=== PATIENT | female | born 1975 | race Caucasian/White ===

== ENCOUNTER 2019-05-21 16:29 | Emergency (ER) | payer OTHER, SELFPAY ==
--- NOTE | 2019-05-21 16:40 | ED.URI ---
HPI - URI/Sore Throat General Chief Complaint: Upper Respiratory Infection Stated Complaint: cough/congested/whezzing/ramirez Time Seen by Provider: 05/21/19 16:41 Source: patient and RN notes reviewed History of Present Illness HPI Narrative: Patient is a 44-year-old female that presents the urgent care with complaints of cough, congestion, wheezing, headache. Patient states that she is also had some intermittent shortness of breath. States that her symptoms started on Monday. Denies any known fever, nausea, vomiting. Patient would also like to mention that her urine is very yellow and would like to be tested for urinary tract infection . Patient states that her yellow urine has been ongoing for approximately a week and a half. Patient also proceeded to say that she was having some urgency and burning with urination intermittently. Patient has been taking Excedrin for her headache. Patient believes her headache is from all the drainage . Patient denies any chest pain. States that she will not go back to her primary care physician but believes she was on high blood pressure medication at one time in which she took herself off . Patient stated multiple times that she does not take care of herself . No other acute complaints. No acute distress noted. Patient aware of the plan of care. Related Data Allergies Allergy/AdvReac Type Severity Reaction Status Date / Time Penicillins Allergy Unknown Verified 03/02/15 13:33 Review of Systems Review of Systems: Narrative: CONSTITUTIONAL: Denies fever, chills, or sweats. EYES: Denies visual changes, redness, or discharge. ENT: Denies rhinorrhea, congestion, sore throat, or otalgia. Reports of postnasal drainage CARDIOVASCULAR: Denies chest pain, palpitations, or edema. RESPIRATORY: Reports of cough, chest congestion, wheezing GASTROINTESTINAL: Denies abdominal pain, nausea, vomiting, or diarrhea. GENITOURINARY: Reports of dysuria, urgency, yellow urine SKIN: Denies rash or itching. MUSCULOSKELETAL: Denies back pain, joint pain, or myalgia. NEUROLOGIC: Reports of headache All other systems reviewed are negative, except as documented in HPI. [facility] Family History Family History (Updated 11/13/15 @ 23:21 by DOCTOR UNKNOWN) Mother Patient's mother is in good health Sibling Patient's sister is in good health Social History Social History Smoking status: Heavy tobacco smoker Alcohol intake: current Gender identity (if verbalized by the patient): Female Comments At the time of my signature, I reviewed and agree with the nursing past medical, surgical, social, and family history. There is no relevant family history pertinent to the patient complaint. Exam Narrative: Exam Narrative: GENERAL: This is a well-nourished, well-developed patient, in no apparent distress. HEAD: normocephalic, atraumatic. EYES: PERRL. Sclera clear/white. Vision is grossly intact. EARS: External ears normal, auditory canals clear and without drainage, TMs normal without perforation. Hearing grossly intact. NOSE: External nose normal with no obvious nasal discharge, nares without redness, no rhinorrhea. THROAT: Mucous membranes moist, posterior pharynx clear. Moderate postnasal drainage NECK: Neck supple CARDIOVASCULAR: Regular rate and rhythm without murmurs, gallops, or rubs. RESPIRATORY: Inspiratory and expiratory wheezes throughout GASTROINTESTINAL: Soft, nontender SKIN: warm, intact with no suspicious lesions or rash, good texture and turgor. NEURO: awake, alert, and oriented to person, place and time. There were no obvious focal neurologic abnormalities. EXTREMITIES: No clubbing, cyanosis, or edema. BACK: Negative bilateral CVA tenderness Course Vital Signs Vital signs: Vital Signs Temperature 97.5 F L 05/21/19 16:43 Pulse Rate 87 05/21/19 16:43 Respiratory Rate 18 05/21/19 16:43 Pulse Oximetry 100 05/21/19 16:43 Temperature 97.5 F L 05/21/19 16:43 Pulse Rate 87
[2019-05-21 16:43] VITALS: PULSE 87; RESP 18; TEMP 36.4; O2SAT 100
[2019-05-21 17:03] VITALS: BP 196/112
== END 2019-05-21 17:14 | disposition home or self-care (01) ==
PROVIDERS: Emergency Provider Nurse Practitioner Family
DX: J40 Bronchitis, not specified as acute or chronic (principal); F17.200 Nicotine dependence, unspecified, uncomplicated
CPT/HCPCS: 81003; 99213; G0463

== ENCOUNTER 2019-08-04 14:54 | Emergency (ER) | payer OTHER, SELFPAY ==
[2019-08-04 15:09] VITALS: BP 158/88; PULSE 84; RESP 16; TEMP 37.1; O2SAT 99
--- NOTE | 2019-08-04 15:35 | ED.GENADULT ---
HPI - General Adult General Chief complaint: Unspecified Stated complaint: nose rhino removal History of Present Illness HPI narrative: Patient had a rhino rocket placed at [facility] in [facility] due to her nose bleed that would not stom on Monday and is here today to have it removed. Related Data Home Medications Medication Instructions Recorded Confirmed albuterol sulfate [Ventolin HFA] INHALATION 08/04/19 lisinopril 08/04/19 metoprolol succinate PO 08/04/19 Allergies Allergy/AdvReac Type Severity Reaction Status Date / Time Penicillins Allergy Unknown Verified 03/02/15 13:33 Review of Systems Review of Systems: Narrative: CONSTITUTIONAL: Denies fever, chills, or sweats. EYES: Denies visual changes, redness, or discharge. ENT: Denies rhinorrhea, congestion, sore throat, or otalgia. Left nare Rhino Rocket CARDIOVASCULAR:Denies chest pain, palpitations, or edema. RESPIRATORY: Denies cough or dyspnea. GASTROINTESTINAL: Denies abdominal pain, nausea, vomiting, or diarrhea. GENITOURINARY: Denies dysuria or hematuria. SKIN:[Denies rash or itching. MUSCULOSKELETAL:Denies back pain, joint pain, or myalgia. NEUROLOGIC: Denies headache, numbness, or weakness. PSYCHIATRIC:Denies anxiety or depression ON LICENSE OF [facility] Family History Family History (Updated 11/13/15 @ 23:21 by DOCTOR UNKNOWN) Mother Patient's mother is in good health Sibling Patient's sister is in good health Social History Social History Smoking status: Heavy tobacco smoker Alcohol intake: current Gender identity (if verbalized by the patient): Female Comments At time as signature, I have reviewed and agree with nursing past medical, social, surgical and family history. Please see nursing chart for further information. There is no relevant family history pertinent to the presenting complaint. Exam Narrative: Exam Narrative: GENERAL:Well-appearing, well-nourished, and in no acute distress. HEAD:Normocephalic, atraumatic. EYES: PERRLA and EOMI. ENT: Nares left has rhino rocket with slight drainage noted with streak drainage. Mucous membranes moist. NECK: Supple. CHEST: Clear to auscultation. No respiratory distress. HEART: Regular rate and rhythm. No murmur heard. Normal peripheral pulses. ABDOMEN: Soft, nontender, nondistended, normal active bowel sounds. EXTREMITIES: Normal range of motion. No edema. SKIN: Warm, dry, no rash. NEURO: No focal deficits. Alert and oriented x3. Course Vital Signs Vital signs: Vital Signs Temperature 98.8 F 08/04/19 15:09 Pulse Rate 84 08/04/19 15:09 Respiratory Rate 16 08/04/19 15:09 Blood Pressure 158/88 H 08/04/19 15:09 Pulse Oximetry 99 08/04/19 15:09 Temperature 98.8 F 08/04/19 15:09 Pulse Rate 84 08/04/19 15:09 Respiratory Rate 16 08/04/19 15:09 Blood Pressure 158/88 H 08/04/19 15:09 Pulse Oximetry 99 08/04/19 15:09 Procedures FB Removal Nose Foreign Body #1: Foreign Body Removal Date: 08/04/19 Foreign Body Removal Time: 17:07 Location: nostril (L) Suspected Foreign Body: other (Rhino rocket) Complications: none Additional Comments: nasal drainae filled with nasal secretion that has old blood noted. Patient tolerated well with not acute bleeding noted. Medical Decision Making Vital Signs Vital Signs: Vital Signs Temperature 98.8 F 08/04/19 15:09 Pulse Rate 84 08/04/19 15:09 Respiratory Rate 16 08/04/19 15:09 Blood Pressure 158/88 H 08/04/19 15:09 Pulse Oximetry 99 08/04/19 15:09 Temperature 98.8 F 08/04/19 15:09 Pulse Rate 84 08/04/19 15:09 Respiratory Rate 16 08/04/19 15:09 Blood Pressure 158/88 H 08/04/19 15:09 Pulse Oximetry 99 08/04/19 15:09 Discharge Plan Discharge Clinical Impression: Encounter for removal of nasal pack Patient Disposition: Home, Self-Care Condition: Stable Instructions: Antibiotic Form, Nosebleed (ED) Additional Instructions: Your
== END 2019-08-04 15:50 | disposition home or self-care (01) ==
PROVIDERS: Emergency Provider Nurse Practitioner Family; PCP Family Medicine
DX: Z48.00 Encounter for change or removal of nonsurgical wound dressing (principal)
CPT/HCPCS: 99211; G0463

== ENCOUNTER 2022-11-07 09:35 | Emergency (ER) | payer BC, SELFPAY ==
--- NOTE | 2022-11-07 09:39 | ED.URI ---
HPI - URI/Sore Throat General Chief Complaint: Upper Respiratory Infection Stated Complaint: Cough,Congestion Time Seen by Provider: 11/07/22 09:43 Source: patient, RN notes reviewed and old records reviewed Mode of arrival: ambulatory Limitations: no limitations History of Present Illness HPI Narrative: 47-year-old female presents to the [facility] with complaints of cough and congestion for 1 week. Patient is currently a smoker. Has noticed some postnasal drainage as well. Reports chest congestion, sinus congestion, ear fullness Has tried [id number] products with minimal to no relief. Onset (ago): week(s) (1) Related Data Home Medications Medication Instructions Recorded Confirmed albuterol sulfate 90 mcg/actuation inhalation 08/04/19 aerosol inhaler (Ventolin HFA) lisinopril 20 mg tablet 08/04/19 metoprolol succinate 100 mg PO 08/04/19 tablet,extended release 24 hr Allergies Allergy/AdvReac Type Severity Reaction Status Date / Time Penicillins Allergy Unknown Verified 03/02/15 13:33 Review of Systems Review of Systems: All systems reviewed & are unremarkable except as noted in HPI and below Constitutional: Constitutional: Reports no additional constitutional complaints Eyes: Eyes: Reports no additional eye complaints ENT: Reports as per HPI Cardiovascular: Cardiovascular: Reports no additional cardiovascular complaints, Denies chest pain and Denies dyspnea Respiratory: Respiratory: Reports as per HPI, Reports chest congestion, Reports cough, Denies dyspnea and Reports wheezing Gastrointestinal: Gastrointestinal: Reports no additional gastrointestinal complaints, Denies abdominal pain, Denies nausea and Denies vomiting Musculoskeletal: Musculoskeletal: Reports no additional musculoskeletal complaints Integumentary/Breasts: Skin/Breast: Reports system reviewed and no additional complaints, except as docu Neurologic: Reports system reviewed and no additional complaints, except as documented Psychiatric: Psychiatric: Reports no additional psychiatric complaints Allergic/Immunologic: Allergic/Immunologic: Reports no additional allergic/immunologic complaints [facility] Family History Family History Mother Patient's mother is in good health Sibling Patient's sister is in good health Social History Social History Smoking status: Heavy tobacco smoker Alcohol intake: current Gender identity (if verbalized by the patient): Female Comments At the time of my signature, I reviewed and agree with the nursing past medical, surgical, social, and family history. There is no relevant family history pertinent to the patient complaint. Exam Const: General: cooperative, healthy appearing, comfortable, no acute distress, well developed, alert and well nourished Nutritional Appearance: well nourished and obese Orientation/consciousness: patient oriented x3 Limitations: no limitations HENMT: Head: normal to inspection Ears: hearing grossly normal bilaterally, external ears normal, TM's normal bilaterally and EAC's normal Face/Nose/Sinus: Normal external nose present, Normal nares present, Normal nasal mucous membranes and turbinates present and normal facial exam Face and sinus: normal facial exam Mouth: Yes Normal oral and palatal mucosa present, Yes lip normal and Yes moist mucous membranes Throat: posterior oropharynx normal, uvula midline and postnasal drainage Eyes: General: appearance normal, both eyes and all related structures Alignment and Position: alignment normal Periorbital: periorbital findings normal Pupils: Equal, round and reactive pupils present EOM: EOMs intact bilaterally Neck: Neck: normal visual inspection, full ROM, no lymphadenopathy and no meningeal signs Chest: Chest palpation & inspection: normal inspection of the chest Resp: Effort & Inspection: normal re
[2022-11-07 09:42] VITALS: BP 161/99; PULSE 88; RESP 16; TEMP 36.1; O2SAT 99
== END 2022-11-07 10:01 | disposition home or self-care (01) ==
PROVIDERS: Emergency Provider Nurse Practitioner
DX: J40 Bronchitis, not specified as acute or chronic (principal); F17.200 Nicotine dependence, unspecified, uncomplicated
CPT/HCPCS: 99213; G0463

== ENCOUNTER 2023-09-02 16:00 | Emergency (ER) | payer BC, SELFPAY ==
[2023-09-02] VITALS (13 sets, daily range): BP systolic 169–208; BP diastolic 97–114; PULSE 96–126; RESP 20–36; TEMP 36.7; O2SAT 97–98
--- NOTE | ~2023-09-02 | XR_ITS ---
EXAMINATION: XR chest 2V Exam Date/Time: 09/02/2023 16:52 CDT HISTORY: heavy chest/cp starting at 1100 Comparison: None. RESULT: Lines, tubes, and devices: None. Lungs and pleura: Diffuse reticulonodular opacities and cuffing. No focal consolidation, pleural eff usion, or pneumothorax. Cardiomediastinal silhouette: Unremarkable. Other: No acute osseous or upper abdominal finding. IMPRESSION: Pulmonary opacities may represent mild interstitial edema and/or respiratory bronchiolitis. Reviewed, dictated and finalized at location K. IMPRESSION: Pulmonary opacities may represent mild interstitial edema and/or respiratory br onchiolitis.
--- NOTE | 2023-09-02 16:01 | ECG_ITS ---
SEE SCANNED COPY FOR CONFIRMED REPORT MTDD
[2023-09-02 16:14] LABS: Basophils Absolute Auto 0.1 K/mm3 (0.0-0.1); Basophils Percent Auto 0.4 % (0.2-1.2); Eosinophils Percent Auto 0.1 % (0-4.4); Hematocrit 43.8 % (37.0-47.0); Hemoglobin 14.3 g/dL (12.0-15.0); Immature Granulocyte Absolute 0.05 K/mm3 (0.00-0.031); Immature Granulocyte Percent A 0.4 % (0-0.5); Lymphocytes Absolute Auto 1.72 K/mm3 (0.9-3.2); Lymphocytes Percent Auto 12.3 % (18.3-44.2); Mean Corpuscular HGB Conc 32.6 g/dl (32-36); Mean Corpuscular Hemoglobin 29.3 pg (26-34); Mean Corpuscular Volume 89.8 fl (80-100); Mean Platelet Volume 11.5 fl (7.4-10.4); Monocytes Percent Auto 7.4 % (2.6-8.5); Neutrophils Absolute Auto 11.1 K/mm3 (1.3-6.7); Neutrophils Percent Auto 79.4 % (45.5-73.1); Platelet Count Result 289 k/mm3 (150-375); Red Blood Count 4.88 M/mm3 (4.2-5.4); Red Cell Distribution Width 15.7 % (11.5-14.5)
[2023-09-02] MEDS: ASPIRIN 81 MG CHEWABLE TABLET 324 MG PO (16:14)
[2023-09-02 16:23] LABS: Alanine Aminotransferase 29 U/L (6-35); Alkaline Phosphatase 103 U/L (38-126); Anion Gap 8 mmol/L (4-12); Aspartate Amino Transferase 27 U/L (14-36); Bilirubin,Total 0.8 mg/dL (0.2-1.3); Blood Urea Nitrogen 13 mg/dL (7-17); Carbon Dioxide 23 mmol/L (22-30); Chloride 105 mmol/L (98-107); Estimated CRCL calculation 117 ml/min; Estimated Glomerular Filt Rate > 60; Glucose 110 mg/dL (65-110); Lipase 46 U/L (23-300); Potassium 4.1 mmol/L (3.4-5.0); Sodium 136 mmol/L (137-145)
[2023-09-02 16:25] LABS: INR 0.9; Partial Thromboplastin Time 30.8 Seconds (22.3-36.8); Prothrombin Time 12.7 Seconds (11.1-14.7)
[2023-09-02 16:35] LABS: Troponin I < 0.012 ng/mL (0.000-0.034)
[2023-09-02] MEDS: LORazepam (*CRX) 0.5 MG TABLET PO (16:40)
[2023-09-02] MEDS: NITROGLYCERIN SL 0.4 MG TABLET SUBLINGUAL (16:41)
--- NOTE | 2023-09-02 16:48 | PC.NURSE ---
Pt had 2x Nitroglycerin co chest pain per EDP orders.
--- NOTE | 2023-09-02 17:43 | ED.CHESTPAIN ---
HPI - Chest Pain General Chief Complaint: Chest Pain Stated Complaint: chest heavy Time Seen by Provider: 09/02/23 16:14 History of Present Illness HPI narrative: Patient states that earlier today she started feeling like she can not breathe, was having chest tightness, felt like her hands were going slightly numb, she does have history of hypertension but has not seen a doctor in 5 years and is not on medications Related Data Home Medications Medication Instructions Recorded Confirmed albuterol sulfate 90 mcg/actuation inhalation 08/04/19 aerosol inhaler (Ventolin HFA) lisinopril 20 mg tablet 08/04/19 metoprolol succinate 100 mg PO 08/04/19 tablet,extended release 24 hr Allergies Allergy/AdvReac Type Severity Reaction Status Date / Time Penicillins Allergy Unknown Verified 03/02/15 13:33 Review of Systems Review of Systems: All systems reviewed & are unremarkable except as noted in HPI and below PMFSH Family History Family History Mother Patient's mother is in good health Sibling Patient's sister is in good health Social History Social History Smoking status: Heavy tobacco smoker Alcohol intake: current Gender identity (if verbalized by the patient): Female Exam Narrative: EXAMINATION OF ORGAN SYSTEMS/BODY AREAS: Constitutional: Vital signs per nursing GENERAL: Appears extremely anxious, sitting bolt upright in bed HEAD: Normal with no signs of head trauma. EYES: EOMI, conjunctiva normal ENT: Hearing grossly intact LUNGS: Slightly hyperventilating HEART: Tachycardic ABD: [Soft], [nontender to palpation] EXT: Normal range of motion SKIN: [No rashes or lesions.] NEURO: [Alert and oriented x 3. No gross focal sensory or strength deficits.] PSYCH: Very anxious affect Course Vital Signs Vital signs: Vital Signs Temperature 98.0 F 09/02/23 16:07 Pulse Rate 116 H 09/02/23 16:07 Respiratory Rate 20 09/02/23 16:07 Blood Pressure 208/114 H 09/02/23 16:07 Pulse Oximetry 98 09/02/23 16:07 Oxygen Delivery Room Air 09/02/23 16:07 Temperature 98.0 F 09/02/23 16:07 Pulse Rate 112 H 09/02/23 17:18 Respiratory Rate 24 H 09/02/23 17:18 Blood Pressure 180/97 H 09/02/23 17:18 Pulse Oximetry 97 09/02/23 17:18 Oxygen Delivery Room Air 09/02/23 16:11 MDM - Chest Pain MDM Narrative Medical decision making narrative: Patient with history of hypertension presenting here with symptoms consistent with panic attack, also considered possible ACS or pneumonia. On exam patient is [tachycardic and hyperventilating and is quite anxious]. I will obtain EKG and chest xray to rule out arrhythmia/ischemia, pneumothorax, or other cause of chest discomfort/shortness of breath. Chest x-ray on my independent interpretation does not show any acute abnormality, no pneumothorax or consolidation. EKG showing sinus tachycardia without acute ischemia or arrhythmia I did give patient aspirin and nitroglycerin however she continued to have symptoms, I did therefore gave her small dose of Ativan which helped immediately and on re-evaluation, patient is feeling better, resting comfortably, vital signs now stable. Denies any complaints whatsoever right now. Heart rate is now 86, she is resting comfortably. Blood pressure also improved. Patient also with asymptomatic hypertension. No signs or symptoms of end organ dysfunction; no neurological deficits, severe headaches, visual disturbance, oliguria, or symptoms of dissection/AAA. Long-term risks of hypertension, especially uncontrolled, were discussed including increased risks of kidney disease, vascular disease, stroke and heart disease. We discussed lifestyle modifications including diet and exercise. I will start patient on amlodipine here and provide script for short course, patient expressed understanding of the ins
[2023-09-02 18:11] LABS: Influenza A QL RT-PCR Negative (Negative); Influenza B QL RT-PCR Negative (Negative); RSV RNA, RT-PCR Negative (Negative); SARS-CoV-2 RNA PCR Negative (Negative)
--- NOTE | 2023-09-02 19:00 | ECG_ITS ---
SEE SCANNED COPY FOR CONFIRMED REPORT MTDD
[2023-09-02 19:45] LABS: Troponin I < 0.012 ng/mL (0.000-0.034)
== END 2023-09-02 20:14 | disposition home or self-care (01) ==
PROVIDERS: Preventive Medicine Aerospace Medicine; Emergency Provider Emergency Medicine
DX: R07.9 Chest pain, unspecified (principal); R00.0 Tachycardia, unspecified; Z20.822 Contact with and (suspected) exposure to COVID-19; I10 Essential (primary) hypertension
CPT/HCPCS: 36415; 71046; 80053; 83690; 84484; 85025; 85610; 85730; 87637; 93005; 99284; A9270

== ENCOUNTER 2023-09-13 14:36 | Emergency (ER) | payer BC, SELFPAY ==
--- NOTE | 2023-09-13 14:45 | ED.URI ---
HPI - URI/Sore Throat General Chief Complaint: Upper Respiratory Infection Stated Complaint: cold symptoms Time Seen by Provider: 09/13/23 14:45 Source: patient Mode of arrival: ambulatory Limitations: no limitations History of Present Illness HPI Narrative: 48-year-old female presents with complaint of sore throat, bilateral ear pain, nasal congestion, cough, fatigue, body aches and fever for 4 days. Not taking any [id number]-[id number] medications to treat her symptoms. Does take Zyrtec and aspirin daily. No chest pain or shortness breath. Denies nausea vomiting diarrhea. All systems reviewed and negative except as noted above. Related Data Home Medications Medication Instructions Recorded Confirmed cetirizine 10 mg tablet (Zyrtec) 10 mg PO DAILY PRN Allergy Symptoms 09/13/23 09/13/23 Allergies Allergy/AdvReac Type Severity Reaction Status Date / Time Penicillins AdvReac Mild Hives Verified 09/13/23 14:40 Review of Systems Review of Systems: CONSTITUTIONAL: reports fever, chills, or sweats. EYES: Denies visual changes, redness, or discharge. ENT: Reports rhinorrhea, congestion, sore throat, and bilateral otalgia. CARDIOVASCULAR: Denies chest pain, palpitations, or edema. RESPIRATORY: reports cough. Denies dyspnea. GASTROINTESTINAL: Denies abdominal pain, nausea, vomiting, or diarrhea. GENITOURINARY: Denies dysuria or hematuria. SKIN: Denies rash or itching. MUSCULOSKELETAL: Denies back pain, joint pain, or myalgia. NEUROLOGIC: Denies headache, numbness, or weakness. PSYCHIATRIC: Denies anxiety or depression. All other systems reviewed are negative, except as documented in HPI. [facility] Family History Family History Mother Patient's mother is in good health Sibling Patient's sister is in good health Social History Social History Smoking status: Heavy tobacco smoker Alcohol intake: current Gender identity (if verbalized by the patient): Female Comments At time of signature, agree with nursing past medical, surgical, social and family history. There is no relevant family history pertinent to the presenting complaint. Exam Narrative: GENERAL: This is a well-nourished, well-developed patient, in no apparent distress. HEAD: normocephalic, atraumatic. EYES: PERRL. Sclera clear/white. Vision is grossly intact. EARS: External ears normal, auditory canals clear and without drainage, Fluid to bilateral TMs with erythema without perforation. Hearing grossly intact. NOSE: External nose normal with Moderate congestion, clear nasal drainage, erythema and swelling to bilateral nares. THROAT: Mucous membranes moist, erythema with mild swelling. No exudates. NECK: Neck supple, non-tender without lymphadenopathy, masses or thyromegaly. CARDIOVASCULAR: Regular rate and rhythm without murmurs, gallops, or rubs. RESPIRATORY: Clear to auscultation. Breath sounds equal bilaterally. No wheezes, rales, or rhonchi. SKIN: warm, Dry, intact with no suspicious lesions or rash, good texture and turgor. NEURO: awake, alert, and oriented to person, place and time. There were no obvious focal neurologic abnormalities. EXTREMITIES: No joint tenderness, effusion, or edema noted. Course Course Level of Care: Express Care Visit Vital Signs Vital signs: Vital Signs Temperature 36.6 C 09/13/23 14:46 Pulse Rate 110 H 09/13/23 14:46 Respiratory Rate 18 09/13/23 14:46 Blood Pressure 151/85 H 09/13/23 14:46 Pulse Oximetry 98 09/13/23 14:46 Oxygen Delivery Room Air 09/13/23 14:46 Temperature 36.6 C 09/13/23 14:46 Pulse Rate 110 H 09/13/23 14:46 Respiratory Rate 18 09/13/23 14:46 Blood Pressure 151/85 H 09/13/23 14:46 Pulse Oximetry 98 09/13/23 14:46 Oxygen Delivery Room Air 09/13/23 14:46 reviewed, temp 100? F orally MDM - URI/Sore Throat MDM Narrative Med
[2023-09-13 14:46] VITALS: BP 151/85; PULSE 110; RESP 18; TEMP 36.6; O2SAT 98
== END 2023-09-13 15:22 | disposition home or self-care (01) ==
PROVIDERS: Emergency Provider Nurse Practitioner Family
DX: J02.9 Acute pharyngitis, unspecified (principal); H65.03 Acute serous otitis media, bilateral; Z20.822 Contact with and (suspected) exposure to COVID-19; F17.200 Nicotine dependence, unspecified, uncomplicated
CPT/HCPCS: 87081; 87426; 87804; 87880; 99213; G0463

== ENCOUNTER → 2023-09-26 16:05 | Outpatient (CLI) | payer BC, SELFPAY ==
--- NOTE | ~2023-09-26 | XR_ITS ---
XR chest 2V Ordering provider: Guerline Leal NP History: 48 years Female with . R06.02 - Shortness of breath . Comparison: September 02, 2023 FINDINGS: MEDIASTINUM: The cardiac silhouette is not enlarged. LUNGS: No infiltrates, effusions or pneumothorax. Opacity seen in the left costophrenic angle is most likely summation shadow. Vague opacities projecte d in the lateral view on the spine midthoracic area. Follow-up in 3 months advised OTHER: Degenerative changes of the spine. No free air under the diaphragm. IMPRESSION: No acute cardiopulmonary pathology. Opacity seen in the left costophrenic angle is most likely summation shadow. Vague opacity projected in the lateral view on the spine midthoracic area. Follow-up in 2-3 months advised. Reviewed, dictated and finalized at location A. IMPRESSION: No acute cardiopulmonary pathology. Opacity seen in the left costophrenic angle is most likely summation shadow. Va rodrigo opacity projected in the lateral view on the spine midthoracic area. Follow -up in 2-3 months advised.
== END ==
PROVIDERS: PCP Nurse Practitioner Family; Visit Provider Nurse Practitioner Family
DX: R06.02 Shortness of breath (principal)
CPT/HCPCS: 71046

== ENCOUNTER 2023-10-06 14:16 | Inpatient (IN) | payer BC, SELFPAY ==
[2023-10-06] VITALS (11 sets, daily range): BP systolic 126–144; BP diastolic 80–91; PULSE 96–118; RESP 16–34; TEMP 36.4–36.8; O2SAT 97–100; BMI 31.5
--- NOTE | ~2023-10-06 | XR_ITS ---
EXAMINATION: XR chest 1V portable DATE: 10/10/2023 10:19 INDICATION: Pericarditis. Pleural effusion. TECHNIQUE: A single frontal view of the chest was obtained. COMPARISON: Chest single view 10/09/2023 FINDINGS: There are airspace opacities at left lung base. There is mild atelectasis at right lung bas e. There is mild scarring at the lung apices. No pleural effusion or pneumothorax. There is enlargeme nt of the cardiac silhouette. IMPRESSION: 1. Stable airspace opacities at left lung base, consistent with atelectasis versus pneumonia. 2. Enlargement of the cardiac silhouette, likely secondary to pericardial effusion. Reviewed, dictated and finalized at location A. IMPRESSION: 1. Stable airspace opacities at left lung base, consistent with atelectasis hammad jona pneumonia. 2. Enlargement of the cardiac silhouette, likely secondary to pericardial effus ion.
--- NOTE | ~2023-10-06 | XR_ITS ---
XR_[id number]_CR DATE: 10/07/2023 11:37 INDICATION: Postthoracentesis examination TECHNIQUE: PA chest COMPARISON: 10/06/2023 PA and lateral chest FINDINGS: Bibasilar infiltrate and/or atelectasis, left greater than right. Cardiomegaly. The costophrenic angles appear relatively sharp. No significant pleural effusion is noted. There is n o evidence of pneumothorax following left ultrasound-guided percutaneous thoracentesis. IMPRESSION: Bibasilar infiltrate or atelectasis, primarily on the left No evidence of iatrogenic pneumothorax post left thoracentesis Cardiomegaly Reviewed, dictated and finalized at Location A. Reviewed, dictated and finalized at location A.
--- NOTE | ~2023-10-06 | XR_ITS ---
XR chest 2V Ordering provider: Frank Santiago MD History: 48 years Female with . Chest pain, SOB . Comparison: September 26, 2023 FINDINGS: MEDIASTINUM: The cardiac silhouette is not enlarged. LUNGS: No evidence of pneumothorax. Atelectatic changes in the left lung base with possible minimal e ffusion is not excluded. Prominent markings bilaterally in the lower lobes. OTHER: Degenerative the spine. No free air under the diaphragm. IMPRESSION: Left basal atelectatic changes. Pneumonia cannot be excluded. Minimal effusion is also possible. Reviewed, dictated and finalized at location A.
--- NOTE | ~2023-10-06 | US_ITS ---
US thoracentesis guidance only DATE: 10/07/2023 11:50 INDICATION: Left pleural effusion TECHNIQUE: The purpose of the procedure, technique and potential complications including bleeding and pneumothorax were discussed with the patient. The patient verbalized understanding and gave consent. The skin of the left back was prepared with sterile Betadine. Sterile drapes were applied. 1% lidocai ne local anesthetic was administered to the skin and underlying subcutaneous tissues in the lower pos terior intercostal space on the left. Subsequently a single stick needle/catheter was introduced unev entfully into the posterior pleural space with ultrasound guidance. Clear yellowish pleural fluid was obtained at the hub of the needle. The catheter was advanced over the needle and the needle withdraw n. 500 CC of yellowish pleural fluid was drained into a vacuum bottle. The patient was very cooperative tolerated procedure well, without apparent complication. IMPRESSION: Ultrasound-guided percutaneous left thoracentesis procedure yielding 500 CC clear yellow pleural fluid Reviewed, dictated and finalized at Location A. Reviewed, dictated and finalized at location A. IMPRESSION: Ultrasound-guided percutaneous left thoracentesis procedure yieldin g 500 CC clear yellow pleural fluid
--- NOTE | ~2023-10-06 | CT_ITS ---
CTA chest PE protocol Ordering provider: Jenn Acosta MD History: 48 years Female with . elev dimer; cp/sob . Comparison: None. Technique: CT angiogram chest was performed following timed intravenous injection of contrast. Thin s lice axial images and reformatted coronal images were obtained. Three dimensional reformatted images of the chest were also obtained using a [employer] workstation. Radiation reduction technique utilized. DLP is 473.98 mGy. 100 mL Omnipaque 350 was given. Findings: PULMONARY ARTERIES: No pulmonary embolus. VISUALIZED THORACIC INLET: Normal. MEDIASTINUM: Aorta/coronary arteries: Mild atheromatous disease. Heart/other: The heart is not enlarged. Pericardial effusion of moderate amount is noted. Lymph nodes: No mediastinal or hilar adenopathy. LUNGS: Moderate pleural effusion with left basal pneumonia. Minimal atelectatic changes in the right lung ba se. No pneumothorax.. No pulmonary nodules or masses. . VISUALIZED UPPER ABDOMEN: Slightly prominent adrenal glands. The measures 1.2 cm. Otherwise, the visu alized upper abdomen is normal. MUSCULOSKELETAL: Soft tissues: The superficial soft tissues are normal. Bones: Age appropriate degenerative changes of the spine. IMPRESSION: 1. No Pulmonary embolism. No aortic dissection. 2. Moderate pericardial effusion. 3. Left basal pneumonia with adjacent moderate pleural effusion. Reviewed, dictated and finalized at location A.
--- NOTE | ~2023-10-06 | XR_ITS ---
EXAMINATION: XR chest 1V portable DATE: 10/09/2023 09:48 INDICATION: Pneumonia. TECHNIQUE: A single frontal view of the chest was obtained. COMPARISON: Chest single view 10/07/2023, chest CT 10/06/2023 FINDINGS: There are airspace opacities at left lung base. There is mild scarring at the lung apices. There is a small left pleural effusion. No pneumothorax. There is enlargement of the cardiac silhouet te. IMPRESSION: 1. Worsened airspace opacities at left lung base, consistent with atelectasis versus pneumonia. 2. Small left pleural effusion. 3. Enlargement of the cardiac silhouette, likely secondary to pericardial effusion as seen on the gustavo or CT. Reviewed, dictated and finalized at location A. IMPRESSION: 1. Worsened airspace opacities at left lung base, consistent with atelectasis v ersus pneumonia. 2. Small left pleural effusion. 3. Enlargement of the cardiac silhouette, likely secondary to pericardial effus ion as seen on the prior CT.
--- NOTE | 2023-10-06 14:20 | ECG_ITS ---
Test Date: 2023-10-06 14:31:48 Measurements Intervals [place] Rate: 110 P: 11 [place]: 172 QRS: 3 QRSD: 93 T: 87 QT: 299 QTc: 406 Interpretive Statements SINUS TACHYCARDIA NONSPECIFIC ST & T-WAVE ABNORMALITY ABNORMAL RHYTHM ECG No previous ECG available for comparison Electronically Signed On 10-06-2023 15:29:02 CDT by Dat Carrillo M.D.
--- NOTE | 2023-10-06 14:51 | ED.CHESTPAIN ---
HPI - Chest Pain General Chief Complaint: Chest Pain Stated Complaint: dyspnea for one month, PCP wants CT Time Seen by Provider: 10/06/23 14:44 Source: patient and family ( father) Mode of arrival: ambulatory Limitations: no limitations History of Present Illness HPI narrative: patient presents report of chest pain and dyspnea occurring episodically over the past 1 month. She was seen for this approximately 1 month ago and at that time was diagnosed with hypertension and anxiety and given blood pressure medications as well as short course of anxiety pills. As recommended, she did follow-up with her primary care physician which was nurse practitioner Eri Leal in Dr. Ruffin's office. She had a chest x-ray and was prescribed anxiety pills. After chest x-ray was performed at an urgent care showing findings of left lung opacities (by report), she was prescribed a steroid and a Z Pac which she started approximately 09/26. she started feeling much better after this. Four days ago her symptoms started again and she describes a pleuritic nature and heavy pressure sensation in her chest. She is also having pain throughout her neck and shoulders. She does endorse taking Tylenol extra-strength 500 mg 1 tablet t.i.d.. No lower extremity edema. She does have a dry nonproductive cough that causes her chest hurt. no recent travel, no prior history of DVT or PE. Not on exogenous hormones. She states her primary care physician wanted her to come to the emergency department for CT imaging. She is a former smoker who quit 5 weeks ago and is using Nicorette as an adjunct which has been helping. Prior to that had been 1 pack per day smoker. Related Data Home Medications Medication Instructions Recorded Confirmed cetirizine 10 mg tablet (Zyrtec) 10 mg PO DAILY PRN Allergy Symptoms 09/13/23 10/06/23 buspirone 5 mg tablet 15 mg PO BID 10/06/23 10/06/23 Allergies Allergy/AdvReac Type Severity Reaction Status Date / Time Penicillins AdvReac Mild Hives Verified 10/06/23 14:23 [facility] Past Medical History Medical History (Updated 10/06/23 @ 23:52 by Nadia Greenfield APRN) Anxiety HLD (hyperlipidemia) HTN (hypertension) Sleep disorder Surgical History Surgical History Hx of tonsillectomy Family History Family History Mother Hypertension Sibling Patient's sister is in good health Father Heart disease Hypertension Cerebrovascular accident Grandparent Diabetes mellitus Social History Social History Smoking packs per day: 1 Smoking cigarettes per day: 20.0 Years smoked: 35 Smoking pack-years: 35.00 Smoking status: Former smoker Tobacco type: cigarettes Smoking end date: 09/05/23 Additional smoking assessment comments: Uses Nicorette gum Alcohol intake: former Alcohol use details: Former social drinker- Stopped drinking August 2023 Substance use: current Substance use type: marijuana Do You Feel Safe in your Home?: Yes Lack of Transportation: No Lack of Food: Never True Current Housing: I Have Housing Concerned About Future Housing: No Difficulty Paying Gas/Electric Bills: No Difficulty Paying for Meds: No Currently Unemployed: No Education: Don't Know Difficulty w/ Childcare or Family Care: No Gender identity (if verbalized by the patient): Female Spiritual care concerns: No Exam Narrative: GENERAL: Well-appearing, well-nourished, and in no acute distress although appears somewhat uncomfortable. HEAD: Normocephalic, atraumatic. EYES: Non injected, non icteric ENT: Nares clear, no rhinorrhea or epistaxis. NECK: Supple. CHEST: Speaking in full sentences. No respiratory distress. lungs clear to auscultation in anterior and posterior hurley without wheezes, crackles, or areas of consolidation
[2023-10-06] MEDS: ASPIRIN 81 MG CHEWABLE TABLET 324 MG PO (15:05)
[2023-10-06] MEDS: MORPHINE SULFATE (*CRX) 4 MG/ML INJ IV PUSH (15:25)
[2023-10-06 15:29] LABS: Basophils Percent Auto 0.2 % (0.2-1.2); Hematocrit 37.4 % (37.0-47.0); Hemoglobin 12.1 g/dL (12.0-15.0); Immature Granulocyte Absolute 0.08 K/mm3 (0.00-0.031); Immature Granulocyte Percent A 0.5 % (0-0.5); Lymphocytes Absolute Auto 1.72 K/mm3 (0.9-3.2); Mean Corpuscular HGB Conc 32.4 g/dl (32-36); Mean Corpuscular Hemoglobin 28.6 pg (26-34); Mean Corpuscular Volume 88.4 fl (80-100); Mean Platelet Volume 11.5 fl (7.4-10.4); Monocytes Absolute Auto 1.3 K/mm3 (0.1-0.6); Monocytes Percent Auto 7.3 % (2.6-8.5); Neutrophils Absolute Auto 14.1 K/mm3 (1.3-6.7); Platelet Count Result 399 k/mm3 (150-375); Red Blood Count 4.23 M/mm3 (4.2-5.4); Red Cell Distribution Width 15.4 % (11.5-14.5); White Blood Count 17.1 K/mm3 (4.5-10.0)
[2023-10-06 15:40] LABS: INR 1.2; Prothrombin Time 15.7 Seconds (11.1-14.7)
[2023-10-06 15:42] LABS: Alanine Aminotransferase 18 U/L (6-35); Albumin Level 4.3 g/dL (3.5-5.1); Alkaline Phosphatase 87 U/L (38-126); Anion Gap 9 mmol/L (4-12); Aspartate Amino Transferase 12 U/L (14-36); Blood Urea Nitrogen 7 mg/dL (7-17); Calcium 9.8 mg/dL (8.4-10.2); Carbon Dioxide 21 mmol/L (22-30); Chloride 102 mmol/L (98-107); Estimated CRCL calculation 132 ml/min; Estimated Glomerular Filt Rate > 60; Glucose 112 mg/dL (65-110); Lipase 24 U/L (23-300); Potassium 3.9 mmol/L (3.4-5.0); Sodium 132 mmol/L (137-145)
[2023-10-06 15:49] LABS: NT Pro B Type Natriuretic Pept 311 pg/mL (19.9-100)
[2023-10-06 15:51] LABS: Troponin I < 0.012 ng/mL (0.000-0.034)
[2023-10-06 15:56] LABS: D Dimer 2.41 ug/mL (<0.48)
[2023-10-06 16:32] LABS: Influenza A QL RT-PCR Negative (Negative); Influenza B QL RT-PCR Negative (Negative); RSV RNA, RT-PCR Negative (Negative); SARS-CoV-2 RNA PCR Negative (Negative)
[2023-10-06 17:38] LABS: Alveolar/Arterial O2 Gradient 38.5 mmHg; Base Excess ABG 0.8 mEq/l (+/-2.0); Fractional Inspired Oxygen 21 %; HCO3 ABG 23.3 mEq/l (22.0-26.0); Oxygen Content ABG 17.5 %vol (16.0-22.0); Oxygen Saturation ABG 96.1 % (95.0-100.0); Oxyhemoglobin 94.8 % THb (90.0-100.0); PCO2 ABG 30.8 mmHg (35.0-45.0); PO2 ABG 74.3 mmHg (80.0-100.0); PO2 FiO2 Ratio Arterial Blood 3.54 %; Total Hemoglobin 13.1 g/dL (12.0-18.0); pH ABG 7.496 (7.350-7.450)
[2023-10-06 17:39] LABS: Modified Allen's Test Pass; Site Drawn RIGHT RADIAL
--- NOTE | 2023-10-06 18:09 | ECG_ITS ---
Test Date: 2023-10-06 18:09:13 Measurements Intervals [place] Rate: 101 P: 15 [place]: 174 QRS: 10 QRSD: 89 T: 71 QT: 328 QTc: 425 Interpretive Statements SINUS TACHYCARDIA POSSIBLE LEFT ATRIAL ENLARGEMENT [-0.1mV P WAVE IN V1/V2] NONSPECIFIC ST & T-WAVE ABNORMALITY ABNORMAL RHYTHM ECG Compared to ECG 10/06/2023 14:31:48 No significant changes Electronically Signed On 10-08-2023 08:20:40 CDT by Dat Carrillo M.D.
[2023-10-06] MEDS: DOXYCYCLINE HYCLATE 100 MG TABLET PO (18:15)
--- NOTE | 2023-10-06 18:20 | ECG_ITS ---
Test Date: 2023-10-06 18:20:44 Measurements Intervals [place] Rate: 93 P: -1 [place]: 152 QRS: 9 QRSD: 84 T: 63 QT: 330 QTc: 412 Interpretive Statements SINUS RHYTHM NONSPECIFIC ST & T-WAVE ABNORMALITY borderline ECG Compared to ECG 10/06/2023 18:09:13 no significant differencet Electronically Signed On 10-08-2023 08:21:25 CDT by Dat Carrillo M.D.
[2023-10-06 18:55] LABS: Lactate Dehydrogenase 153 U/L (120-246)
[2023-10-06 19:08] LABS: Troponin I < 0.012 ng/mL (0.000-0.034)
--- NOTE | 2023-10-06 19:36 | ADMGEN ---
This patient, Jennifer Montes, was admitted to [facility] Surg Room 301-01 at 19:05. Patient/family oriented to hospital policies and general routines including ID bracelet, bed and alarms, visiting hours, pain management, procedures, bathroom and other care routines, personal items, smoking policy, room service/diet, and visiting hours. Information on how to activate the Rapid Response Team has been discussed. Patient/Family are encouraged to report perceived risks to care and to ask questions if they do not understand what they are told or what they should do.
--- NOTE | 2023-10-06 19:51 | PM.IMHP ---
H&P: HPI History of Present Illness Date/Time: 10/06/23 19:51 Chief Complaint: Chest Pain, SOB Narrative: 48 y/o F presents here with chest pain, shortness of breath, and dizziness with PMH of HTN and anxiety. The patient presents here from home for further evaluation of chest pain, shortness a breath, and dizziness. The chest pain and dyspnea has been intermittent over the past month, seen at [place] ED on 09/02/23 for these symptoms and was diagnosed with HTN. She was prescribed Amlodipine 5 mg daily and was discharged. Was then seen at a local urgent care for a sore throat on 09/12. Strep was negative. She was then started on prednisone course x7 days and Z-Pack on 09/27/2023 which she has completed. Later established with a PCP on 09/26/23 and was also diagnosed with anxiety and started on Buspirone 5 mg daily with plan to titrate to 15 mg BID. CXR was obtained which showed a opacity seen in the left costophrenic angle is most likely summation shadow. Vague opacity projected in the lateral view on the spine midthoracic area. Follow-up in 2-3 months advised. Patient reports improvement in her symptoms with course of steroids and antibiotics, however in the last 4 days symptoms have returned. Reporting chest pain that she describes as excruciating, radiating into her neck bilaterally and shoulders bilaterally, constant, aggravated by laying flat/bending over, and alleviated by sitting up. Accompanied by nonproductive cough, intermittent dizziness, diarrhea, decreased appetite, and fatigue. Denies LE swelling, palpitations, syncope, nausea or vomiting. Has been utilizing her inhaler and Tylenol with partial relief. Patient has hx of smoking with cessation 5 weeks ago. No family history of autoimmune diseases. Endorses night sweats. Has lost 71 lbs in the last 14 months, intentional. No IVDU. No foreign travel, incarceration or history of utilizing a [place] [facility] facility. Initial VS at presentation: 98.2F, HR 116, RR 20, 130/84, and 100% on RA. ED workup showed: WBC 17.1, no anemia, elevated d-dimer, sodium 132, creatinine 0.5 and normal GFR, BNP 311. Viral PCR negative. CXR showed left basal atelectatic changes, pneumonia cannot be excluded and minimal effusion is also possible. CTA showed no PE or dissection, moderate pericardial effusion, and left basal pneumonia adjacent to a left moderate pleural effusion. Review of Systems Review of Systems: All systems reviewed & are unremarkable except as noted in HPI and below PMFSH Past Medical History Medical History (Updated 10/06/23 @ 23:52 by Nadia Greenfield APRN) Anxiety HLD (hyperlipidemia) HTN (hypertension) Sleep disorder Surgical History Surgical History Hx of tonsillectomy Family History Family History Mother Hypertension Sibling Patient's sister is in good health Father Heart disease Hypertension Cerebrovascular accident Grandparent Diabetes mellitus Social History Social History Smoking packs per day: 1 Smoking cigarettes per day: 20.0 Years smoked: 35 Smoking pack-years: 35.00 Smoking status: Former smoker Tobacco type: cigarettes Smoking end date: 09/05/23 Additional smoking assessment comments: Uses Nicorette gum Alcohol intake: former Alcohol use details: Former social drinker- Stopped drinking August 2023 Substance use: current Substance use type: marijuana Do You Feel Safe in your Home?: Yes Lack of Transportation: No Lack of Food: Never True Current Housing: I Have Housing Concerned About Future Housing: No Difficulty Paying Gas/Electric Bills: No Difficulty Paying for Meds: No Currently Unemployed: No Education: Don't Know Difficulty w/ Childcare or Family Care: No Gender identity (if verbalized by the patient): Female Spiritual care concerns: No
[2023-10-06 20:40] LABS: Troponin I < 0.012 ng/mL (0.000-0.034)
[2023-10-06 21:45] LABS: Procalcitonin 0.2 ng/mL
[2023-10-06] MEDS: CEFEPIME 2 GM/NS 50 ML 2 GM/50 ML BAG IVPB (21:58)
[2023-10-06] MEDS: LACTATED RINGERS 1,000 ML 75 ML IV CONT (22:00)
[2023-10-06] MEDS: BENZONATATE 100 MG CAPSULE PO (22:01)
[2023-10-06] MEDS: ACETAMINOPHEN 325 MG TABLET 650 MG PO (22:01)
[2023-10-06] MEDS: MORPHINE SULFATE (*CRX) 2 MG/ML INJ IV PUSH (22:36)
[2023-10-06] MEDS: VANCOMYCIN 1,250 MG/NS 250 ML 1,250 MG/250 ML BAG 166.67 MG IVPB (22:57)
[2023-10-06] MEDS: HYDROcodone/acetaminophen (*CRX) 5-325 MG TABLET 1 TAB PO (22:58)
--- NOTE | 2023-10-07 | ECHO_ITS ---
Patient Info Name: Jennifer Montes Age: 48 years : 1975 Gender: Female Ht: 68 in Wt: 207 lbs BSA: 2.15 m2 HR: 100 bpm BP: 141 / 84 mmHg Heart Rhythm: Sinus Rhythm Technical Quality: Fair Exam Date: 10/07/2023 8:04 AM Exam Location: Echo Lab Patient Status: Inpatient Admit Date: 10/06/2023 Staff Ordering Physician: Nadia Greenfield APRN [employer] Washing: Denilson Butler RDCS Attending Provider: Jorge Knowles MD Referring Physician: Gin CHESTER; Exam Type: CA echo doppler color flow Study Info Indications - pericardial effusion - rule out HF Complete two-dimensional, color flow and Doppler transthoracic echocardiogram is performed. Summary 1. Complete two-dimensional, color flow and Doppler transthoracic echocardiogram is performed. 2. Normal left and right ventricular size and systolic function. 3. No significant valvular abnormality. 4. Very small/trivial circumferential pericardial effusion. Left Ventricle Left ventricular systolic function is normal, estimated at 65-70%. The left ventricular diastolic function is grade I diastolic dysfunction. Right Ventricle Right ventricular chamber dimension is normal. Left Atria Left atrial chamber dimension is normal. Right Atria Right atrial chamber dimension is normal. Aortic Valve The aortic valve is normal. Pulmonic Valve The pulmonic valve is not well visualized. Mitral Valve The mitral valve has normal leaflets. Tricuspid Valve The tricuspid valve leaflets are normal. Pericardium/Pleural There is trivial pericardial effusion. Aorta The aortic root size at the sinus of Valsalva is normal. Left Ventricular Outflow Tract Name Value Normal LVOT 2D LVOT Diameter 1.9 cm LVOT Doppler LVOT Peak Gradient 18 mmHg LVOT Mean Gradient 11 mmHg LVOT VTI 34 cm LVOT VTI/AV VTI Ratio 1.0 LVOT Stroke Volume 99 ml LVOT CO 10.3 l/min LVOT CI 4.8 l/min/m2 Pulmonic Valve Name Value Normal PV Doppler PV Peak Gradient 9 mmHg Mitral Valve Name Value Normal MV Doppler MV Peak Gradient 6 mmHg MV Mean Gradient 3 mmHg MV Decel [place] 345 cm/s2 MV PHT 75 ms MV Area (PHT) 2.9 cm2 4.0-5.0 MV Area (Cont Eq VTI) 4.2 cm2 MV Diastolic Function MV E Peak Velocity
[2023-10-07] MEDS: VANCOMYCIN 1,000 MG/NS 250 ML 1,000 MG/250 ML BAG 250 MG IVPB (01:08)
[2023-10-07] MEDS: CEFEPIME 2 GM/NS 50 ML 2 GM/50 ML BAG IVPB ×3 (05:12→21:36)
[2023-10-07] MEDS: MORPHINE SULFATE (*CRX) 2 MG/ML INJ IV PUSH ×2 (05:25→15:06)
[2023-10-07 05:49] LABS: Basophils Percent Auto 0.2 % (0.2-1.2); Eosinophils Percent Auto 0.1 % (0-4.4); Hematocrit 38.8 % (37.0-47.0); Hemoglobin 12.1 g/dL (12.0-15.0); Immature Granulocyte Absolute 0.11 K/mm3 (0.00-0.031); Immature Granulocyte Percent A 0.6 % (0-0.5); Lymphocytes Absolute Auto 1.29 K/mm3 (0.9-3.2); Lymphocytes Percent Auto 7.3 % (18.3-44.2); Mean Corpuscular HGB Conc 31.2 g/dl (32-36); Mean Corpuscular Hemoglobin 28.6 pg (26-34); Mean Corpuscular Volume 91.7 fl (80-100); Mean Platelet Volume 11.9 fl (7.4-10.4); Monocytes Absolute Auto 1.2 K/mm3 (0.1-0.6); Monocytes Percent Auto 6.7 % (2.6-8.5); Neutrophils Absolute Auto 15.1 K/mm3 (1.3-6.7); Neutrophils Percent Auto 85.1 % (45.5-73.1); Platelet Count Result 379 k/mm3 (150-375); Red Blood Count 4.23 M/mm3 (4.2-5.4); Red Cell Distribution Width 15.6 % (11.5-14.5); White Blood Count 17.7 K/mm3 (4.5-10.0)
[2023-10-07 05:55] LABS: Appearance Urine Cloudy (Clear); Bacteria Urine 1+ /hpf; Bilirubin Urine Negative (Negative); Blood Urine Negative (Negative); Color Urine Yellow (Yellow); Glucose Urine UA Negative (Negative); Ketones Urine 1+ mg/dL (Negative); Leukocyte Esterase Ur Negative LEU/UL (Negative); Need Manual Microscopic Reviewed; Nitrate Urine Negative (Negative); Non Pathogenic Casts 0-2; Protein Urine Trace mg/dL (Negative); RBC Urine 0-2 /hpf (0-2); Squamous Epithelial Cell Urine Few /hpf (Few); pH Urine 5.5 (5.0-9.0)
[2023-10-07 06:01] LABS: Alanine Aminotransferase 16 U/L (6-35); Albumin Level 4.3 g/dL (3.5-5.1); Alkaline Phosphatase 92 U/L (38-126); Anion Gap 10 mmol/L (4-12); Aspartate Amino Transferase 13 U/L (14-36); Bilirubin,Total 0.9 mg/dL (0.2-1.3); Blood Urea Nitrogen 8 mg/dL (7-17); Calcium 9.9 mg/dL (8.4-10.2); Carbon Dioxide 26 mmol/L (22-30); Chloride 102 mmol/L (98-107); Estimated CRCL calculation 114 ml/min; Estimated Glomerular Filt Rate > 60; Glucose 119 mg/dL (65-110); Potassium 3.8 mmol/L (3.4-5.0); Sodium 138 mmol/L (137-145)
[2023-10-07 06:33] VITALS: BP 141/84; PULSE 100; RESP 16; TEMP 36.4; O2SAT 97
[2023-10-07 06:59] LABS: MRSA (PCR) NOT DETECTED (NOT DETECTE)
[2023-10-07 07:01] LABS: Add Urine Microscopic? YES
--- NOTE | 2023-10-07 08:08 | PM.IMPN ---
Progress Note: A&P Assessment and Plan (1) Sepsis: Code(s): A41.9 - Sepsis, unspecified organism Status: Acute Assessment and Plan: - meets SIRS criteria: HR, WBC. No hypotension or hypoxia. - procalcitonin 0.2 - 30 mL/kg = 2700, due to concern for HF given effusions, will start IV fluids at 75 mL/hr - suspected source: PNA - started on cefepime and vancomycin on 10/05 - blood cultures drawn on 10/05-pending - UA ordered - CXR: Left basal atelectatic changes. Pneumonia cannot be excluded. Minimal effusion is also possible. -monitor (2) Pneumonia involving left lung: Qualifiers: Lung location: lower lobe of lung Code(s): J18.9 - Pneumonia, unspecified organism Status: Acute Assessment and Plan: - CXR: Left basal atelectatic changes. Pneumonia cannot be excluded. Minimal effusion is also possible. - failed outpatient treatment, started on Vancomycin and Cefepime on 10/05 - testing for possible pathogens ordered: MRSA Sputum culture Urine legionella antigen Urine pneumococcal antigen Mycoplasma IgM MRSA PCR - Viral PCR negative - supportive care Tylenol p.r.n. DuoNeb p.r.n. Tessalon Perles p.r.n. - no supplemental O2 requirement (3) Pericardial effusion: Code(s): I31.39 - Other pericardial effusion (noninflammatory) Status: Acute Assessment and Plan: - CTA chest: 1. No Pulmonary embolism. No aortic dissection. 2. Moderate pericardial effusion. 3. Left basal pneumonia with adjacent moderate pleural effusion. - echo ordered - BNP 311 - will hold on diuresing given normal BNP for her age - monitor I&Os and daily weights -suspect chest pain is more pleuritic in nature verses ACS (4) Pleural effusion on left: Code(s): J90 - Pleural effusion, not elsewhere classified Status: Acute Assessment and Plan: - CT Chest: Moderate pericardial effusion, left basal pneumonia with adjacent moderate pleural effusion - diagnostic thoracentesis is ordered - echo ordered - will hold on diuresing given normal BNP for her age - infectious vs serous 10/06- US thoracentesis guidance completed with 500 ml of clear yellow pleural fluid-waiting for culture (5) Chest pain: Code(s): R07.9 - Chest pain, unspecified Status: Acute Assessment and Plan: - EKG, initial: Sinus tachycardia, rate 110, nonspecific ST and T-wave abnormality. - Troponin: <0.012 x3 - echo ordered - pain control - suspect chest pain is pleuritic in nature versus ACS (6) Hyponatremia: Code(s): E87.1 - Hypo-osmolality and hyponatremia Status: Acute Assessment and Plan: - Na 132 - neurologically intact - monitor (7) HTN (hypertension): Code(s): I10 - Essential (primary) hypertension Status: Acute Assessment and Plan: - chronic-reviewed - continue home medications: Amlodipine 5 mg - monitor Plan Patient here with chest pain, shortness a breath, and intermittent dizziness. Found to have a left-sided pneumonia, moderate left pleural effusion, and moderate pericardial effusion. Diagnostic thoracentesis -10/06. Echo ordered. Started on cefepime and vancomycin, recently on Z-Lazarus. Supportive care in place. Monitor labs. Diet: Regular GI Prophylaxis: Not indicated DVT Prophylaxis: SCDs Lines: Peripheral Code Status: Full code Time Spent With Patient Time with patient: 25 - 35 minutes Subjective Date/time seen: 10/07/23 08:08 Interval history: 48 y/o F admitted for chest pain, shortness of breath, and dizziness - PMH of HTN and anxiety. Narrative retried from h/p: The patient presents here from home for further evaluation of chest pain, shortness a breath, and dizziness. The chest pain and dyspnea has been intermittent over the past month, seen at [facility] on 09/02/23 for these symptoms and was diagnosed with HTN. She was prescribed Amlodipine 5 mg daily and was
[2023-10-07 08:22] VITALS: O2SAT 95
[2023-10-07] MEDS: amLODIPine BESYLATE 5 MG TABLET PO (11:44)
[2023-10-07] MEDS: VANCOMYCIN 1,500 MG/NS 500 ML 1,500 MG/500 ML BAG 175 MG IVPB (11:44)
[2023-10-07] MEDS: busPIRone HCL 5 MG TABLET 15 MG PO ×2 (11:44→15:59)
[2023-10-07 13:17] LABS: Appearance Pleural Fluid Hazy (Clear); Color Pleural Fluid Yellow (Colorless); Pleural fluid source Pleural fluid
[2023-10-07 13:18] LABS: Lymphocytes Pleural Fluid 11 %; Macrophages Pleural Fluid 6 %; Mesothelial Cells Pleural Flui 11 %; Monocytes Pleural Fluid 7 %; Neutrophils Pleural Fluid 65 % (0-25)
[2023-10-07 14:00] VITALS: BP 136/75; PULSE 113; RESP 16; TEMP 37.3; O2SAT 99
[2023-10-07] MEDS: HYDROcodone/acetaminophen (*CRX) 5-325 MG TABLET 1 TAB PO ×2 (15:59→21:37)
[2023-10-07 20:45] VITALS: BP 118/76; PULSE 90; RESP 16; TEMP 36.4; O2SAT 98
[2023-10-07] MEDS: VANCOMYCIN 1,500 MG/NS 500 ML 1,500 MG/500 ML BAG 250 MG IVPB (22:10)
[2023-10-07] MEDS: LACTATED RINGERS 1,000 ML 75 ML IV CONT (23:30)
[2023-10-08 06:01] VITALS: BP 138/88; PULSE 95; RESP 16; TEMP 37.1; O2SAT 96
[2023-10-08] MEDS: CEFEPIME 2 GM/NS 50 ML 2 GM/50 ML BAG IVPB ×3 (06:23→21:41)
--- NOTE | 2023-10-08 07:42 | PM.IMPN ---
Progress Note: A&P Assessment and Plan (1) Sepsis: Code(s): A41.9 - Sepsis, unspecified organism Status: Acute Assessment and Plan: - meets SIRS criteria: HR, WBC. No hypotension or hypoxia. - procalcitonin 0.2 - 30 mL/kg = 2700, due to concern for HF given effusions, will start IV fluids at 75 mL/hr - suspected source: PNA - started on cefepime and vancomycin on 10/05 - blood cultures drawn on 10/05-pending - UA ordered - CXR: Left basal atelectatic changes. Pneumonia cannot be excluded. Minimal effusion is also possible. -monitor (2) Pneumonia involving left lung: Qualifiers: Lung location: lower lobe of lung Code(s): J18.9 - Pneumonia, unspecified organism Status: Acute Assessment and Plan: - CXR: Left basal atelectatic changes. Pneumonia cannot be excluded. Minimal effusion is also possible. - failed outpatient treatment, started on Vancomycin and Cefepime on 10/05 - testing for possible pathogens ordered: MRSA Sputum culture Urine legionella antigen Urine pneumococcal antigen Mycoplasma IgM MRSA PCR - Viral PCR negative - supportive care Tylenol p.r.n. DuoNeb p.r.n. Tessalon Perles p.r.n. - no supplemental O2 requirement (3) Pericardial effusion: Code(s): I31.39 - Other pericardial effusion (noninflammatory) Status: Acute Assessment and Plan: - CTA chest: 1. No Pulmonary embolism. No aortic dissection. 2. Moderate pericardial effusion. 3. Left basal pneumonia with adjacent moderate pleural effusion. - echo ordered - BNP 311 - will hold on diuresing given normal BNP for her age - monitor I&Os and daily weights -suspect chest pain is more pleuritic in nature verses ACS (4) Pleural effusion on left: Code(s): J90 - Pleural effusion, not elsewhere classified Status: Acute Assessment and Plan: - CT Chest: Moderate pericardial effusion, left basal pneumonia with adjacent moderate pleural effusion - diagnostic thoracentesis is ordered - echo ordered - will hold on diuresing given normal BNP for her age - infectious vs serous 10/06- US thoracentesis guidance completed with 500 ml of clear yellow pleural fluid-waiting for culture 10/07- pleural fluid: no white blood cells seen, no organism so far (5) Chest pain: Code(s): R07.9 - Chest pain, unspecified Status: Acute Assessment and Plan: - EKG, initial: tachy, nonspecific ST and T-wave abnormality. - Troponin: <0.012 x3 - echo ordered - pain control - suspect chest pain is pleuritic in nature versus ACS 10/07- improving now-continue regimen (6) Hyponatremia: Code(s): E87.1 - Hypo-osmolality and hyponatremia Status: Acute Assessment and Plan: - Na 132 - neurologically intact - monitor 10/07- stabilized- 138 (7) HTN (hypertension): Code(s): I10 - Essential (primary) hypertension Status: Acute Assessment and Plan: - chronic-reviewed - continue home medications: Amlodipine 5 mg - monitor Plan Patient here with chest pain, shortness a breath, and intermittent dizziness. Found to have a left-sided pneumonia, moderate left pleural effusion, and moderate pericardial effusion. Diagnostic thoracentesis -10/06. Echo ordered. Started on cefepime and vancomycin, recently on Z-Lazarus. Supportive care in place. Monitor labs. Diet: Regular GI Prophylaxis: Not indicated DVT Prophylaxis: SCDs Lines: Peripheral Code Status: Full code Time Spent With Patient Time with patient: 25 - 35 minutes Subjective Date/time seen: 10/08/23 07:42 Interval history: 48 y/o F admitted for chest pain, shortness of breath, and dizziness - PMH of HTN and anxiety. Narrative retried from h/p: The patient presents here from home for further evaluation of chest pain, shortness a breath, and dizziness. The chest pain and dyspnea has been intermittent over the past month, seen at [facility] on
[2023-10-08] MEDS: busPIRone HCL 5 MG TABLET 15 MG PO ×2 (09:09→16:21)
[2023-10-08] MEDS: amLODIPine BESYLATE 5 MG TABLET PO (09:10)
[2023-10-08] MEDS: ACETAMINOPHEN 325 MG TABLET 650 MG PO (09:11)
[2023-10-08 10:12] LABS: Hematocrit 33.1 % (37.0-47.0); Hemoglobin 10.5 g/dL (12.0-15.0); Mean Corpuscular HGB Conc 31.7 g/dl (32-36); Mean Corpuscular Hemoglobin 28.5 pg (26-34); Mean Corpuscular Volume 89.7 fl (80-100); Mean Platelet Volume 11.7 fl (7.4-10.4); Platelet Count Result 313 k/mm3 (150-375); Red Blood Count 3.69 M/mm3 (4.2-5.4); Red Cell Distribution Width 15.5 % (11.5-14.5); White Blood Count 14.6 K/mm3 (4.5-10.0)
[2023-10-08 10:22] LABS: Anion Gap 8 mmol/L (4-12); Blood Urea Nitrogen 8 mg/dL (7-17); Calcium 9.3 mg/dL (8.4-10.2); Carbon Dioxide 25 mmol/L (22-30); Chloride 102 mmol/L (98-107); Estimated CRCL calculation 135 ml/min; Estimated Glomerular Filt Rate > 60; Glucose 151 mg/dL (65-110); Potassium 3.2 mmol/L (3.4-5.0); Sodium 135 mmol/L (137-145)
[2023-10-08 10:31] LABS: Vancomycin Trough < 5.0 ug/mL (10.0-20.0)
[2023-10-08] MEDS: VANCOMYCIN 1,500 MG/NS 500 ML 1,500 MG/500 ML BAG 250 MG IVPB (10:32)
[2023-10-08 14:00] VITALS: BP 141/90; PULSE 96; RESP 18; TEMP 36.9; O2SAT 96
[2023-10-08] MEDS: POTASSIUM CHLORIDE 20 MEQ PACKET (FOR LIQUID) PO (16:21)
[2023-10-08 20:37] VITALS: BP 137/67; PULSE 95; RESP 16; TEMP 36.2; O2SAT 96
[2023-10-08] MEDS: LACTATED RINGERS 1,000 ML 75 ML IV CONT (22:13)
[2023-10-08] MEDS: VANCOMYCIN 1,500 MG/NS 500 ML 1,500 MG/500 ML BAG 200 MG IVPB (22:13)
[2023-10-09] MEDS: CEFEPIME 2 GM/NS 50 ML 2 GM/50 ML BAG IVPB ×3 (05:04→20:31)
[2023-10-09 05:43] VITALS: BP 144/89; PULSE 98; RESP 17; TEMP 36.2; O2SAT 97
[2023-10-09] MEDS: amLODIPine BESYLATE 5 MG TABLET PO (08:03)
[2023-10-09] MEDS: busPIRone HCL 5 MG TABLET 15 MG PO ×2 (08:03→18:15)
[2023-10-09] MEDS: POTASSIUM CHLORIDE 20 MEQ PACKET (FOR LIQUID) PO ×2 (08:03→18:15)
[2023-10-09 08:35] LABS: Hematocrit 31.7 % (37.0-47.0); Hemoglobin 10.1 g/dL (12.0-15.0); Mean Corpuscular HGB Conc 31.9 g/dl (32-36); Mean Corpuscular Hemoglobin 28.9 pg (26-34); Mean Corpuscular Volume 90.6 fl (80-100); Mean Platelet Volume 11.8 fl (7.4-10.4); Platelet Count Result 300 k/mm3 (150-375); Red Cell Distribution Width 15.4 % (11.5-14.5); White Blood Count 8.5 K/mm3 (4.5-10.0)
--- NOTE | 2023-10-09 08:39 | PM.IMPN ---
Progress Note: A&P Assessment and Plan (1) Sepsis: Code(s): A41.9 - Sepsis, unspecified organism Status: Acute Assessment and Plan: - meets SIRS criteria: HR, WBC. No hypotension or hypoxia. - procalcitonin 0.2 - 30 mL/kg = 2700, due to concern for HF given effusions, will start IV fluids at 75 mL/hr - suspected source: PNA - started on cefepime and vancomycin on 10/05 - blood cultures drawn on 10/05-negative - UA ordered - CXR: Left basal atelectatic changes. Pneumonia cannot be excluded. Minimal effusion is also possible. -monitor -10/08- repeated chest xray- Worsened airspace opacities at left lung base, consistent with atelectasis versus pneumonia. - will consult pulmonology (2) Pneumonia involving left lung: Qualifiers: Lung location: lower lobe of lung Code(s): J18.9 - Pneumonia, unspecified organism Status: Acute Assessment and Plan: - CXR: Left basal atelectatic changes. Pneumonia cannot be excluded. Minimal effusion is also possible. - failed outpatient treatment, started on Vancomycin and Cefepime on 10/05 - testing for possible pathogens ordered: MRSA Sputum culture Urine legionella antigen Urine pneumococcal antigen-pending Mycoplasma IgM MRSA PCR-pending - Viral PCR negative - supportive care Tylenol p.r.n. DuoNeb p.r.n. Tessalon Perles p.r.n. - no supplemental O2 requirement (3) Pericardial effusion: Code(s): I31.39 - Other pericardial effusion (noninflammatory) Status: Acute Assessment and Plan: - CTA chest: 1. No Pulmonary embolism. No aortic dissection. 2. Moderate pericardial effusion. 3. Left basal pneumonia with adjacent moderate pleural effusion. - echo ordered - BNP 311 - will hold on diuresing given normal BNP for her age - monitor I&Os and daily weights -suspect chest pain is more pleuritic in nature verses ACS - monitor (4) Pleural effusion on left: Code(s): J90 - Pleural effusion, not elsewhere classified Status: Acute Assessment and Plan: - CT Chest: Moderate pericardial effusion, left basal pneumonia with adjacent moderate pleural effusion - diagnostic thoracentesis is ordered - echo ordered - will hold on diuresing given normal BNP for her age - infectious vs serous 10/06- US thoracentesis guidance completed with 500 ml of clear yellow pleural fluid-waiting for culture 10/07- pleural fluid: no white blood cells seen, no organism so far 10/08- chest xray: Small left pleural effusion- thoracentesis done on 10/06- on antibiotics. Will stop vanc and add doxy for atypical coverage (5) Chest pain: Code(s): R07.9 - Chest pain, unspecified Status: Acute Assessment and Plan: - EKG, initial: tachy, nonspecific ST and T-wave abnormality. - Troponin: <0.012 x3 - echo ordered - pain control - suspect chest pain is pleuritic in nature versus ACS 10/07- improving now-continue regimen (6) Hyponatremia: Code(s): E87.1 - Hypo-osmolality and hyponatremia Status: Acute Assessment and Plan: - Na 132 - neurologically intact - monitor 10/07- stabilized- 138 (7) HTN (hypertension): Code(s): I10 - Essential (primary) hypertension Status: Acute Assessment and Plan: - chronic-reviewed - continue home medications: Amlodipine 5 mg - monitor Plan Patient here with chest pain, shortness a breath, and intermittent dizziness. Found to have a left-sided pneumonia, moderate left pleural effusion, and moderate pericardial effusion. Diagnostic thoracentesis -10/06. Echo ordered. Started on cefepime and vancomycin, recently on Z-Lazarus. Supportive care in place. Monitor labs. Diet: Regular GI Prophylaxis: Not indicated DVT Prophylaxis: SCDs Lines: Peripheral Code Status: Full code Time Spent With Patient Time with patient: 25 - 35 minutes Subjective Date/time seen: 10/09/23 08:39 Interval history: 48 y/o F admitted
[2023-10-09 08:45] LABS: Anion Gap 8 mmol/L (4-12); Blood Urea Nitrogen 5 mg/dL (7-17); Calcium 9.2 mg/dL (8.4-10.2); Carbon Dioxide 24 mmol/L (22-30); Chloride 104 mmol/L (98-107); Estimated CRCL calculation 135 ml/min; Estimated Glomerular Filt Rate > 60; Glucose 100 mg/dL (65-110); Potassium 3.5 mmol/L (3.4-5.0); Sodium 136 mmol/L (137-145)
[2023-10-09 11:11] LABS: Vancomycin Trough < 5.0 ug/mL (10.0-20.0)
[2023-10-09] MEDS: VANCOMYCIN 2,000 MG/NS 500 ML 2,000 MG/500 ML BAG 250 MG IVPB (11:57)
[2023-10-09] MEDS: DOXYCYCLINE HYCLATE 100 MG TABLET PO ×2 (12:21→20:29)
[2023-10-09 14:00] VITALS: BP 129/80; PULSE 87; RESP 20; TEMP 36.4; O2SAT 96
--- NOTE | 2023-10-09 14:29 | PM.CNPUL ---
Assessment and Plan Assessment and plan (1) Pericardial effusion: Code(s): I31.39 - Other pericardial effusion (noninflammatory) Status: Acute (2) Pleural effusion on left: Code(s): J90 - Pleural effusion, not elsewhere classified Status: Acute Assessment and Plan: This 48-year-old female presented with upper anterior chest pain, exertional dyspnea, night sweats, and leukocytosis for several weeks prior to this hospitalization. During her hospital stay, she was diagnosed with a moderate-sized pericardial effusion on chest CT, as well as a left pleural effusion associated with a left lower lobe infiltrate, likely indicative of atelectasis versus pneumonia. The patient underwent thoracentesis, resulting in the removal of approximately 500 mL of clear fluid. Pleural cultures have thus far returned negative, and the pleural fluid analysis showed neutrophilia. The clinical presentation and diagnostic studies suggest acute pericarditis, which appears to have commenced around five weeks ago. Review of the EKG performed on September 02 revealed changes such as concave ST elevation and ND depression in some leads, which are indicative of pericarditis. A subsequent chest CT confirmed a moderate-sized pericardial effusion. The most recent echocardiogram report indicated a smaller pericardial effusion. The left pleural effusion developed weeks after the initial onset of chest pain and dyspnea. This delay suggests that the pleural effusion may be related to the pericardial effusion rather than the left lower lobe pneumonia. Pleural effusions can occur in patients with pericardial effusion due to contiguous inflammation involving both the pericardium and pleura. The patient's overall clinical condition has improved. Today's testing shows that the WBC count has returned to the normal range. Physical examination revealed decreased breath sounds at the left base posteriorly, likely related to either residual fluid or associated atelectasis. Additionally, the patient exhibited jugular venous distention (JVD), probably related to the pericardial effusion. Plan: Continue the current antibiotic regimen as the patient's condition has improved. Measure BNP, CRP, and MRSA PCR. Await pleural fluid analyses. Consider a Cardiology consultation for acute pericarditis to further explain the patient's illness. Continue to monitor the patient closely. (3) Chest pressure: Code(s): R07.89 - Other chest pain Status: Acute (4) BALES (dyspnea on exertion): Code(s): R06.09 - Other forms of dyspnea Status: Acute (5) Leukocytosis: Code(s): D72.829 - Elevated white blood cell count, unspecified Status: Acute (6) Chest pain: Code(s): R07.9 - Chest pain, unspecified Status: Acute History of Present Illness History of Present Illness Consult date: 10/09/23 Chief complaint: pna, pericardial effusion, pleural effusion Narrative: This consultation is for a left pleural effusion with possible pneumonia. The patient is a 48-year-old female who was in her usual state of health until approximately five weeks ago when she began experiencing upper anterior chest pain, bilateral shoulder pain, and shortness of breath. She was evaluated in the emergency room, where a chest X-ray raised concerns about possible pulmonary opacities. Her CBC revealed leukocytosis. An EKG, upon my review, showed mild concave ST elevation and ND depression in leads such as V6 and II. She was diagnosed with possible anxiety and discharged home with medications for anxiety. During this time, she also experienced night sweats, although it was unclear whether she had a low-grade fever. Approximately one and a half weeks later, her symptoms initially improved but then re-emerged, including shortness of breath, pressure in the upper chest, bilateral shoulder pain, fatigue, and night sweats. She was seen at a local urgent care center and started
[2023-10-09 15:48] LABS: NT Pro B Type Natriuretic Pept 641 pg/mL (19.9-100)
[2023-10-09 16:20] LABS: CRP 31.4 mg/dL (<1.0)
--- NOTE | 2023-10-09 17:15 | PM.CNCAR ---
Assessment and Plan Assessment and plan (1) Chest pain: Code(s): R07.9 - Chest pain, unspecified Status: Acute Assessment and Plan: Probably due to pneumonia. (2) Pericardial effusion: Code(s): I31.39 - Other pericardial effusion (noninflammatory) Status: Acute Assessment and Plan: Trace to small amounts only on echo. Possible pericarditis, but not significant given no chest pain upon lying back. Trial of Indomethacin 25 mg TID. (3) Pneumonia involving left lung: Qualifiers: Lung location: lower lobe of lung Code(s): J18.9 - Pneumonia, unspecified organism Status: Acute Assessment and Plan: On antibiotics. (4) Pleural effusion on left: Code(s): J90 - Pleural effusion, not elsewhere classified Status: Acute Assessment and Plan: S/P thoracentesis 500 ml. (5) HTN (hypertension): Code(s): I10 - Essential (primary) hypertension Status: Acute Assessment and Plan: Stable. History of Present Illness History of Present Illness Consult date/time: 10/09/23 17:16 Reason For Visit: pna, pericardial effusion, pleural effusion Narrative: 48 yr old woman presents to hospital with sob. She has a history of hypertension, smoking. Reports a month ago she had some fever and chills. Then in last 2 weeks she got sob, achiness in shoulders, neck, sore throat and some left chest pain. Found to have left pneumonia and pleural effusion, and had left thoracentesis removing 500 ml of fluid. She has been on antibiotics. States when she takes a deep breath or when lying back she does get out of breath, but no chest pains upon lying back. She quit smoking a month ago was smoking 1 ppd. Review of Systems Review of Systems: All systems reviewed & are unremarkable except as noted in HPI and below Constitutional: Constitutional: Reports as per HPI and Reports fatigue Cardiovascular: Cardiovascular: Reports as per HPI and Reports chest pain Respiratory: Respiratory: Reports as per HPI and Reports dyspnea Gastrointestinal: Gastrointestinal: Reports as per HPI and Denies abdominal pain Genitourinary: Genitourinary: Reports as per HPI and Denies dysuria Musculoskeletal: Musculoskeletal: Reports as per HPI, Reports back pain, Reports arthralgias and Reports neck pain Neurologic: Reports as per HPI, Denies dizziness and Denies syncope [facility], [facility] Past Medical History Medical History (Updated 10/06/23 @ 23:52 by Nadia Greenfield APRN) Anxiety HLD (hyperlipidemia) HTN (hypertension) Sleep disorder Surgical History Surgical History Hx of tonsillectomy Family History Family History Mother Hypertension Sibling Patient's sister is in good health Father Heart disease Hypertension Cerebrovascular accident Grandparent Diabetes mellitus Social History Social History Smoking packs per day: 1 Smoking cigarettes per day: 20.0 Years smoked: 35 Smoking pack-years: 35.00 Smoking status: Former smoker Additional smoking assessment comments: Uses Nicorette gum Alcohol intake: former Alcohol use details: Former social drinker- Stopped drinking August 2023 Substance use: current Substance use type: marijuana Do You Feel Safe in your Home?: Yes Lack of Transportation: No Lack of Food: Never True Current Housing: I Have Housing Concerned About Future Housing: No Difficulty Paying Gas/Electric Bills: No Difficulty Paying for Meds: No Currently Unemployed: No Education: Don't Know Difficulty w/ Childcare or Family Care: No Gender identity (if verbalized by the patient): Female Spiritual care concerns: No Meds Home Medications and Allergies Home Medications Medication Instructions Recorded Confirmed Type cetirizine 10 mg
[2023-10-09] MEDS: SACCHAROMYCES BOULARDII 250 MG CAPSULE PO (18:15)
[2023-10-09 20:12] VITALS: BP 121/77; PULSE 85; RESP 18; TEMP 36.6; O2SAT 94
[2023-10-10] MEDS: CEFEPIME 2 GM/NS 50 ML 2 GM/50 ML BAG IVPB (05:03)
[2023-10-10 05:25] VITALS: BP 138/76; PULSE 74; RESP 18; TEMP 36.1; O2SAT 98
[2023-10-10 05:44] LABS: Hematocrit 34.3 % (37.0-47.0); Hemoglobin 10.5 g/dL (12.0-15.0); Mean Corpuscular HGB Conc 30.6 g/dl (32-36); Mean Corpuscular Hemoglobin 27.9 pg (26-34); Mean Platelet Volume 11.8 fl (7.4-10.4); Platelet Count Result 364 k/mm3 (150-375); Red Blood Count 3.77 M/mm3 (4.2-5.4); Red Cell Distribution Width 15.4 % (11.5-14.5); White Blood Count 9.4 K/mm3 (4.5-10.0)
[2023-10-10 05:58] LABS: Anion Gap 10 mmol/L (4-12); Blood Urea Nitrogen 5 mg/dL (7-17); Calcium 9.6 mg/dL (8.4-10.2); Carbon Dioxide 24 mmol/L (22-30); Chloride 103 mmol/L (98-107); Estimated CRCL calculation 135 ml/min; Estimated Glomerular Filt Rate > 60; Glucose 108 mg/dL (65-110); Potassium 3.7 mmol/L (3.4-5.0); Sodium 137 mmol/L (137-145)
--- NOTE | 2023-10-10 07:14 | PM.IMPN ---
Progress Note: A&P Assessment and Plan (1) Sepsis: Code(s): A41.9 - Sepsis, unspecified organism Status: Acute Assessment and Plan: - meets SIRS criteria: HR, WBC. No hypotension or hypoxia. - procalcitonin 0.2 - 30 mL/kg = 2700, due to concern for HF given effusions, will start IV fluids at 75 mL/hr - suspected source: PNA - started on cefepime and vancomycin on 10/05 - blood cultures drawn on 10/05-negative - UA ordered - CXR: Left basal atelectatic changes. Pneumonia cannot be excluded. Minimal effusion is also possible. -monitor -10/08- repeated chest xray- Worsened airspace opacities at left lung base, consistent with atelectasis versus pneumonia. - will consult pulmonology (2) Pneumonia involving left lung: Qualifiers: Lung location: lower lobe of lung Code(s): J18.9 - Pneumonia, unspecified organism Status: Acute Assessment and Plan: - CXR: Left basal atelectatic changes. Pneumonia cannot be excluded. Minimal effusion is also possible. - failed outpatient treatment, started on Vancomycin and Cefepime on 10/05 - testing for possible pathogens ordered: MRSA Sputum culture Urine legionella antigen Urine pneumococcal antigen-pending Mycoplasma IgM MRSA PCR-pending - Viral PCR negative - supportive care Tylenol p.r.n. DuoNeb p.r.n. Tessalon Perles p.r.n. - no supplemental O2 requirement - vanc stopped- on cefepime and doxy now-will continue (3) Pericardial effusion: Code(s): I31.39 - Other pericardial effusion (noninflammatory) Status: Acute Assessment and Plan: - CTA chest: 1. No Pulmonary embolism. No aortic dissection. 2. Moderate pericardial effusion. 3. Left basal pneumonia with adjacent moderate pleural effusion. - echo ordered - BNP 311 - will hold on diuresing given normal BNP for her age - monitor I&Os and daily weights -suspect chest pain is more pleuritic in nature verses ACS - monitor - card was consulted- low suspicion for pericarditis- but will trial Indomethacin 25 mg TID. - will continbue pneumonia treatment (4) Pleural effusion on left: Code(s): J90 - Pleural effusion, not elsewhere classified Status: Acute Assessment and Plan: - CT Chest: Moderate pericardial effusion, left basal pneumonia with adjacent moderate pleural effusion - diagnostic thoracentesis is ordered - echo ordered - will hold on diuresing given normal BNP for her age - infectious vs serous 10/06- US thoracentesis guidance completed with 500 ml of clear yellow pleural fluid-waiting for culture 10/07- pleural fluid: no white blood cells seen, no organism so far 10/08- chest xray: Small left pleural effusion- thoracentesis done on 10/06- on antibiotics. Will stop vanc and add doxy for atypical coverage (5) Chest pain: Code(s): R07.9 - Chest pain, unspecified Status: Acute Assessment and Plan: - EKG, initial: tachy, nonspecific ST and T-wave abnormality. - Troponin: <0.012 x3 - echo ordered - pain control - suspect chest pain is pleuritic in nature versus ACS 10/07- improving now-continue regimen 10/08-had a short sharp episode of pain- card were consulted low suspicion for pericarditis- pleuritic pain due to pneumonia but will try Indomethacin 25 mg TID. (6) Hyponatremia: Code(s): E87.1 - Hypo-osmolality and hyponatremia Status: Acute Assessment and Plan: - Na 132 - neurologically intact - monitor 10/07- stabilized- 138 (7) HTN (hypertension): Code(s): I10 - Essential (primary) hypertension Status: Acute Assessment and Plan: - chronic-reviewed - continue home medications: Amlodipine 5 mg - monitor Plan Patient here with chest pain, shortness a breath, and intermittent dizziness. Found to have a left-sided pneumonia, moderate left pleural effusion, and moderate pericardial effusion. Diagnostic thoracentesis -10/06. Echo ordered. Started on cefepim
--- NOTE | 2023-10-10 07:41 | PM.PNCARD ---
Progress Note: A&P Assessment and Plan (1) Chest pain: Code(s): R07.9 - Chest pain, unspecified Status: Acute Assessment and Plan: Probably due to pneumonia. (2) Pericardial effusion: Code(s): I31.39 - Other pericardial effusion (noninflammatory) Status: Acute Assessment and Plan: Trace to small amounts only on echo. Possible pericarditis, but not significant given no chest pain upon lying back. Trial of Indomethacin 25 mg TID. (3) Pneumonia involving left lung: Qualifiers: Lung location: lower lobe of lung Code(s): J18.9 - Pneumonia, unspecified organism Status: Acute Assessment and Plan: On antibiotics. (4) Pleural effusion on left: Code(s): J90 - Pleural effusion, not elsewhere classified Status: Acute Assessment and Plan: S/P thoracentesis 500 ml. (5) HTN (hypertension): Code(s): I10 - Essential (primary) hypertension Status: Acute Assessment and Plan: Stable. Subjective Date/time seen: 10/10/23 07:41 Interval history: She feels better today with less sob and achiness over neck/back/chest. Exam Const: General: cooperative, healthy appearing and comfortable Orientation/consciousness: oriented to person, oriented to place and oriented to time Resp: Auscultation: no crackles, no rales, no rhonchi and wheezes lower bilaterally Cardio: Rate: regular rate Rhythm: regular rhythm Heart sounds: no murmurs and no rubs Neuro: General: oriented to person, oriented to place and oriented to time Extrem: Right lower extremity: no edema Left lower extremity: no edema Objective Data Vital Signs Vital Signs: Vital Signs - 24 hr 10/09/23 08:03 10/09/23 14:00 10/09/23 20:12 Temperature 97.5 F L 97.9 F Pulse Rate 87 85 Respiratory Rate 20 18 Blood Pressure 129/80 121/77 Pulse Oximetry 96 94 Oxygen Delivery Room Air 10/10/23 05:25 Temperature 97.0 F L Pulse Rate 74 Respiratory Rate 18 Blood Pressure 138/76 Pulse Oximetry 98 Oxygen Delivery Intake/Output Intake/Output: Intake & Output 10/07/23 10/08/23 10/09/23 10/10/23 23:59 23:59 23:59 23:59 Intake Total 3030 2610 3240 50 Output Total 1400 Balance 1630 2610 3240 50 Meds/Results Medications: Active Medications Generic Name Dose Route Start Last Admin Trade Name Freq PRN Reason Stop Dose Admin Acetaminophen 650 mg 10/06/23 17:52 10/08/23 09:11 Acetaminophen 325 Mg Tablet PO 650 mg Q4H PRN Administration Mild Pain (1-3) or Fever Hydrocodone Bitart/Acetaminophen 1 tab 10/06/23 22:14 10/07/23 21:37 Hydrocodone/Acetaminophen (*Crx) 5-325 Mg Tablet PO 1 tab Q6H PRN Administration Pain Rated 4-6 Albuterol/Ipratropium 3 ml 10/06/23 20:55 Ipratropium 0.5 Mg/Albuterol Sulfate 2.5 Mg Ampul.Neb 3 Ml INHALATION Q6HRT PRN Shortness Of Breath Or Wheezing Amlodipine Besylate 5 mg 10/07/23 09:00 10/09/23 08:03 Amlodipine Besylate 5 Mg Tablet PO 5 mg DAILY STEPHANIE Administration Benzonatate 100 mg 10/06/23 21:00 10/06/23 22:01 Benzonatate 100 Mg Capsule PO 100 mg TID PRN Administration Cough Buspirone HCl 15 mg 10/07/23 09:00 10/09/23 18:15 Buspirone Hcl 5 Mg Tablet PO 15 mg BID STEPHANIE Administration Doxycycline Hyclate 100 mg 10/09/23 12:30 10/09/23 20:29 Doxycycline Hyclate 100 Mg Tablet PO 10/13/23 21:01 100 mg Q12HR STEPHANIE Administration Famotidine 20 mg 10/10/23 09:00 Famotidine 20 Mg Tablet PO Q12HR STEPHANIE Cefepime HCl 2 gm in 50 mls @ 100 mls/hr 10/06/23 22:00 10/10/23 05:33 Maxipime 2 Gm/Ns 50 Ml IVPB Infused Q8H STEPHANIE Infusion Indomethacin 25 mg 10/10/23 08:00 Indomethacin 25 Mg Capsule PO TIDWM STEPHANIE Loratadine 10 mg 10/06/23 21:02 Loratadine 10 Mg Tablet PO DAILY PRN Allergy Symptoms Morphine Sulfate 2 mg 10/06/23 22:14 10/07/23 15:06 Morphine Sulfate (*Crx) 2 Mg/Ml Inj
[2023-10-10 08:00] VITALS: O2SAT 98
--- NOTE | 2023-10-10 08:40 | PM.PNPUL ---
Progress Note: A&P Assessment and Plan (1) Pericardial effusion: Code(s): I31.39 - Other pericardial effusion (noninflammatory) Status: Acute (2) Pleural effusion on left: Code(s): J90 - Pleural effusion, not elsewhere classified Status: Acute Assessment and Plan: This 48-year-old female presented with upper anterior chest pain, exertional dyspnea, night sweats, and leukocytosis for several weeks prior to this hospitalization. During her hospital stay, she was diagnosed with a moderate-sized pericardial effusion on chest CT, as well as a left pleural effusion associated with a left lower lobe infiltrate, likely indicative of atelectasis versus pneumonia. The patient underwent thoracentesis, resulting in the removal of approximately 500 mL of clear fluid. Pleural cultures have thus far returned negative, and the pleural fluid analysis showed neutrophilia. The clinical presentation and diagnostic studies suggest acute pericarditis, which appears to have commenced around five weeks ago. Review of the EKG performed on September 02 revealed changes such as concave ST elevation and WI depression in some leads, which are indicative of pericarditis. A subsequent chest CT confirmed a moderate-sized pericardial effusion. The most recent echocardiogram report indicated a smaller pericardial effusion. The left pleural effusion developed weeks after the initial onset of chest pain and dyspnea. This delay suggests that the pleural effusion may be related to the pericardial effusion rather than the left lower lobe pneumonia. Pleural effusions can occur in patients with pericardial effusion due to contiguous inflammation involving both the pericardium and pleura. The patient was evaluated by the Cardiology Services and commenced on anti-inflammatory medication, presumably for acute pericarditis. During today's physical examination, decreased breath sounds were noted at the left posterior lung base, along with localized wheezing. Although the patient's overall clinical condition has improved, she continues to exhibit prominent jugular venous distention, which cannot be fully explained by the echocardiogram findings of a trivial pleural effusion. Plan: Will repeat chest x-ray today regarding size of left pleural effusion, cardiomegaly. She will remain on current antibiotic regimen for now. WBC is back into the normal range but CRP is still elevated. Pleural fluid analysis data still pending. (3) BALES (dyspnea on exertion): Code(s): R06.09 - Other forms of dyspnea Status: Acute Subjective Date/time seen: 10/10/23 08:40 Interval history: Patient complaining of some shortness of breath when ambulating and also in supine position. Had some positional chest pain last night, along with night sweats. Was evaluated by Cardiology Services, started on anti-inflammatory agent. She has not received the anti-inflammatory medication as yet. She has no fever chills hemoptysis. Review of Systems Review of Systems: All systems reviewed & are unremarkable except as noted in HPI and below (HPI and below) Exam Narrative: GENERAL APPEARANCE: Well developed, well nourished, alert and cooperative, and appears to be in no acute distress while on room air SKIN: Inspection of the skin reveals no rashes, ulcerations or petechiae. HEENT: Sclerae anicteric and conjunctivae pink and moist. Extraocular movements were intact and pupils were equal, round, and reactive to light. The oral mucosa, hard and soft palate, tongue and posterior pharynx were normal. NECK: Supple. There was no thyroid enlargement, and no tenderness, or masses were felt. JVD present CHEST: Normal AP diameter and normal contour without any kyphoscoliosis. LUNGS: Dullness to percussion and decreased breath sounds at left base posteriorly, localized wheezing left base CARDIAC: There was a regular rate and rhythm without any murmurs, gallops, rubs. ABDOMEN: Soft and nontender wit
[2023-10-10] MEDS: amLODIPine BESYLATE 5 MG TABLET PO (09:07)
[2023-10-10] MEDS: busPIRone HCL 5 MG TABLET 15 MG PO (09:07)
[2023-10-10] MEDS: FAMOTIDINE 20 MG TABLET PO (09:07)
[2023-10-10] MEDS: POTASSIUM CHLORIDE 20 MEQ PACKET (FOR LIQUID) PO (09:07)
[2023-10-10] MEDS: DOXYCYCLINE HYCLATE 100 MG TABLET PO (09:07)
[2023-10-10] MEDS: INDOMETHACIN 25 MG CAPSULE PO ×2 (09:07→12:01)
[2023-10-10] MEDS: SACCHAROMYCES BOULARDII 250 MG CAPSULE PO (09:08)
--- NOTE | 2023-10-10 14:12 | PM.DS ---
DS: Admitting Diagnosis Discharge Date 10/10/23 Admitting Diagnosis sob, cough, chest pain DS: Discharge Diagnosis Discharge Diagnosis (1) Sepsis: Code(s): A41.9 - Sepsis, unspecified organism Status: Acute Assessment and Plan: - meets SIRS criteria: HR, WBC. No hypotension or hypoxia. - procalcitonin 0.2 - 30 mL/kg = 2700, due to concern for HF given effusions, will start IV fluids at 75 mL/hr - suspected source: PNA - started on cefepime and vancomycin on 10/05 - blood cultures drawn on 10/05-negative - UA ordered - CXR: Left basal atelectatic changes. Pneumonia cannot be excluded. Minimal effusion is also possible. -monitor -10/08- repeated chest xray- Worsened airspace opacities at left lung base, consistent with atelectasis versus pneumonia. - will consult pulmonology (2) Pneumonia involving left lung: Qualifiers: Lung location: lower lobe of lung Code(s): J18.9 - Pneumonia, unspecified organism Status: Acute Assessment and Plan: - CXR: Left basal atelectatic changes. Pneumonia cannot be excluded. Minimal effusion is also possible. - failed outpatient treatment, started on Vancomycin and Cefepime on 10/05 - testing for possible pathogens ordered: MRSA Sputum culture Urine legionella antigen Urine pneumococcal antigen-pending Mycoplasma IgM MRSA PCR-pending - Viral PCR negative - supportive care Tylenol p.r.n. DuoNeb p.r.n. Tessalon Perles p.r.n. - no supplemental O2 requirement - vanc stopped- on cefepime and doxy now-will continue (3) Pericardial effusion: Code(s): I31.39 - Other pericardial effusion (noninflammatory) Status: Acute Assessment and Plan: - CTA chest: 1. No Pulmonary embolism. No aortic dissection. 2. Moderate pericardial effusion. 3. Left basal pneumonia with adjacent moderate pleural effusion. - echo ordered - BNP 311 - will hold on diuresing given normal BNP for her age - monitor I&Os and daily weights -suspect chest pain is more pleuritic in nature verses ACS - monitor - card was consulted- low suspicion for pericarditis- but will trial Indomethacin 25 mg TID. - will continbue pneumonia treatment (4) Pleural effusion on left: Code(s): J90 - Pleural effusion, not elsewhere classified Status: Acute Assessment and Plan: - CT Chest: Moderate pericardial effusion, left basal pneumonia with adjacent moderate pleural effusion - diagnostic thoracentesis is ordered - echo ordered - will hold on diuresing given normal BNP for her age - infectious vs serous 10/06- US thoracentesis guidance completed with 500 ml of clear yellow pleural fluid-waiting for culture 10/07- pleural fluid: no white blood cells seen, no organism so far 10/08- chest xray: Small left pleural effusion- thoracentesis done on 10/06- on antibiotics. Will stop vanc and add doxy for atypical coverage (5) Chest pain: Code(s): R07.9 - Chest pain, unspecified Status: Acute Assessment and Plan: - EKG, initial: tachy, nonspecific ST and T-wave abnormality. - Troponin: <0.012 x3 - echo ordered - pain control - suspect chest pain is pleuritic in nature versus ACS 10/07- improving now-continue regimen 10/08-had a short sharp episode of pain- card were consulted low suspicion for pericarditis- pleuritic pain due to pneumonia but will try Indomethacin 25 mg TID. (6) Hyponatremia: Code(s): E87.1 - Hypo-osmolality and hyponatremia Status: Acute Assessment and Plan: - Na 132 - neurologically intact - monitor 10/07- stabilized- 138 (7) HTN (hypertension): Code(s): I10 - Essential (primary) hypertension Status: Acute Assessment and Plan: - chronic-reviewed - continue home medications: Amlodipine 5 mg - monitor Plan Final dx: pneumonia Pt is doing a lot better- no more painful chest pain episodes. Seen per pulm and card- chest xray is repeated- unremarkable. Pt real
[2023-10-10] MEDS: cefuroxime axetiL 250 MG TABLET 500 MG PO (14:51)
--- NOTE | 2023-10-11 09:47 | PC.NURSE ---
Spoke to pt regarding following up with her PCP in 5-7 days. Pt has appt on 10/30 and wants to keep this.
[2023-10-11 11:32] LABS: Mycoplasma IgM Antibody Titer 182 U/mL
[2023-10-11 18:58] LABS: Pneumococcal Antigen Urine NOT DETECTED
[2023-10-13 00:58] LABS: Legionella pneumophila Ag Ur NOT DETECTED
[2023-10-14 13:13] LABS: Glucose Pleural Fluid 106 mg/dL; LDH Pleural Fluid 454 U/L; Total Protein Pleural Fluid 4.5 g/dL
== END 2023-10-10 15:12 | disposition home or self-care (01) | DRG 871 ==
LOC: ANHED 15:21 → ANH3MEDSUR 18:46
PROVIDERS: Family Medicine; Internal Medicine Pulmonary Disease; Nurse Practitioner; Student in an Organized Health Care Education/Training Program; Admitting Provider Internal Medicine; Emergency Provider Student in an Organized Health Care Education/Training Program; PCP Nurse Practitioner Family; Visit Provider Internal Medicine
DX: A41.9 Sepsis, unspecified organism (principal); J18.9 Pneumonia, unspecified organism; I31.39 Other pericardial effusion (noninflammatory); J90 Pleural effusion, not elsewhere classified; E87.1 Hypo-osmolality and hyponatremia; F41.9 Anxiety disorder, unspecified; I10 Essential (primary) hypertension; Z87.891 Personal history of nicotine dependence; Z20.822 Contact with and (suspected) exposure to COVID-19
CPT/HCPCS: 32555; 36415; 36600; 71045; 71046; 71275; 80048; 80053; 80202; 81001; 82565; 82805; 82945; 83615; 83690; 83880; 84145; 84157; 84443; 84484; 85025; 85027; 85380; 85610; 85730; 86140; 86738; 87070; 87075; 87086; 87205; 87449; 87637; 87641; 87899; 88108; 88305; 89051; 93005; 93306; 96361; 96365; 96366; 96367; 96375; 96376; 99285; A9270; G0378; J0692; J0696; J2270; J3370; J7120; Q9967